=== PATIENT | male | born 1985 | race Caucasian/White ===

== ENCOUNTER 2017-12-02 13:01 | Inpatient (IN) | payer OTHER ==
[2017-12-02 13:12] VITALS: BMI 24.7
--- NOTE | 2017-12-02 18:10 | HP ---
COWS - Scale Resting Pulse: 1= SC 81-100 Sweatin=Flushed/Facial Moisture Restless Observation: 1= Difficult to Sit Still Pupil Size: 1= Pupils >than Normal Bone or Joint Aches: 1= Mild Discomfort Runny Nose/ Eye Tearin= Nasal Congestion GI Upset > 30mins: 2= Nausea/Diarrhea Tremor Observation: 2= Slight Tremor Visible Yawning Observation: 1= 1-2x During Session Anxiety or Irritability: 2=Irritable/Anxious Goose Flesh Skin: 0=Smooth Skin COWS Score: 14 Admission ROS BHS - HPI Chief Complaint: "I just want to stop , I am tired" Allergies/Adverse Reactions: Allergies Allergy/AdvReac Type Severity Reaction Status Date / Time penicillin G Allergy Severe Hives Verified 12/02/17 16:19 History of Present Illness: 32 y/o male with a 15 year history of heroin addiction presents here today requesting detox from Heroin. Pt was here last in 2013 and has been in other detox/rehab places. last used this a.m Hx of nicotine depence. Denies medical hx. Hx of anxiety for which he takes xanax, states he only goes to the psychiatrist to get meds to get high. Endorses a 6 month sober period from Apr 2017 - sep 2017 as a result of being in skilled nursing. Has not been been sober since then. Denies SI, HI at current time. Exam Limitations: No Limitations - Ebola screening Have you traveled outside of the country in the last 21 days: No (N) Have you had contact with anyone from an Ebola affected area: No Have you been sick,other than usual withdrawal symptoms: No Do you have a fever: No - Review of Systems Constitutional: No Symptoms Reported EENT: reports: Nose Congestion Respiratory: reports: No Symptoms reported Cardiac: reports: No Symptoms Reported GI: reports: Diarrhea, Nausea, Abdominal cramping Musculoskeletal: reports: Back Pain (lower back pain), Joint Pain Integumentary: reports: No Symptoms Reported, Other (track carrasco to L antecubital and R lower arm areas) Neuro: reports: Headache (slight headache, slight tremors to both arms), Tremors Endocrine: reports: Flushing Hematology: reports: No Symptoms Reported Psychiatric: reports: Judgement Intact, Mood/Affect Appropiate, Orientated x3, Anxious Other Systems: Reviewed and Negative Patient History - Patient Medical History Hx Anemia: No Hx Asthma: No Hx Chronic Obstructive Pulmonary Disease (COPD): No Hx Cancer: No Hx Cardiac Disorders: No Hx Congestive Heart Failure: No Hx Hypertension: No Hx Hypercholesterolemia: No Hx Pacemaker: No HX Cerebrovascular Accident: No Hx Seizures: No Hx Diabetes: No Hx Gastrointestinal Disorders: No Hx Liver Disease: No Hx Genitourinary Disorders: No Hx Sexually Transmitted Disorders: No Hx Renal Disease (ESRD): No Hx Thyroid Disease: No Hx Human Immunodeficiency Virus (HIV): No Hx Hepatitis C: No Hx Depression: No Hx Suicide Attempt: No (denies current ideas) Hx Bipolar Disorder: No Hx Schizophrenia: No - Patient Surgical History Past Surgical History: No Hx Neurologic Surgery: No Hx Cataract Extraction: No Hx Cardiac Surgery: No Hx Lung Surgery: No Hx Breast Surgery: No Hx Breast Biopsy: No Hx Abdominal Surgery: No Hx Appendectomy: No Hx Cholecystectomy: No Hx Genitourinary Surgery: No Hx Section: No Hx Orthopedic Surgery: No Anesthesia Reaction: No - PPD History Previous Implant?: Yes Documented Results: Negative w/o proof Implanted On Prior R Admission?: Yes Date: 02/03/14 PPD to be Administered?: Yes - Reproductive History Patient is a Female of Child Bearing Age (11 -55 yrs old): No Last Menstrual Period: 08/20/14 - Smoking Cessation Smoking history: Current every day smoker Have you smoked in the past 12 months: Yes Aproximately how many cigarettes per day: 10 Hx Chewing Tobacco Use: No Initiated information on smoking cessation: Yes 'Breaking Loose' booklet given: 12/02/17 - Substance & Tx. History Hx Alcohol Use: Yes (ocassionally ) Hx Substance Use: Yes Substance Use Type: Heroin, Marijuana Hx Substance Use Treatment: Yes - Substances Abused Heroin Route: Injection Frequency: Daily Amount used: 10-15 bags Age of first use: 16 Date of Last Use: 12/02/17 Family Disease History - Family Disease History Family Disease History: [place]: Grandparent (Grandma - liver [place]) Admission Physical Exam BHS - Vital Signs Vital Signs: Vital Signs - 24 hr 12/02/17 13:05 Temperature 97.2 F L Pulse Rate 81 Respiratory 16 Rate Blood Pressure 97/61 - Physical General Appearance: Yes: Mild Distress, Anxious HEENTM: Yes: Nasal Congestion Respiratory: Yes: Chest Non-Tender, Lungs Clear Neck: Yes: No masses,lesions,Nodules, Supple, Trachea in good position Breast: Yes: Breast Exam Deferred Cardiology: Yes: Regular Rhythm, Regular Rate Abdominal: Yes: Normal Bowel Sounds, Non Tender, Soft Back: Yes: Within Normal Limits, Normal Inspection Musculoskeletal: Yes: full range of Motion, Gait Steady Extremities: Yes: Normal Capillary Refill, Coldness Neurological: Yes: Within Normal Limits, Fully Oriented, Alert, Motor Strength 5 /5 Integumentary: Yes: Normal Color, Clammy, Track Carrasco (L Antecubital, R lower arm - not infected) - Diagnostic (1) Opioid dependence, uncomplicated Current Visit: Yes Status: Acute (2) Nicotine dependence Current Visit: No Status: Chronic (3) Cannabis dependence Current Visit: Yes Status: Acute (4) Cocaine dependence Current Visit: Yes Status: Acute Cleared for Admission [facility] - Detox or Rehab [facility] Level of Care: Medically Managed Detox Regimen/Protocol: Methadone [facility] Breath Alcohol Content Breath Alcohol Content: 0 Urine Drug Screen - Results Drug Screen Negative: No Urine Drug Screen Results: THC-Marijuana, CORNELIUS-Cocaine, OPI-Opiates
[2017-12-02] MEDS ORDERED: MAG HYDROX/AL HYDROX/SIMETH 30 ML UNIT-DOSE CUP PO PRN (18:30)
[2017-12-02] MEDS ORDERED: ACETAMINOPHEN 325 MG TABLET (FP) PO PRN (18:30)
[2017-12-02] MEDS ORDERED: MENTHOL/PHENOL 1 EACH UD MM PRN (18:30)
[2017-12-02] MEDS ORDERED: P-EPHED 60MG/TRIPROLIDI 2.5MG TABLET PO PRN (18:30)
[2017-12-02] MEDS ORDERED: guaiFENesin/D-METHORPHAN HB 10 ML UNIT-DOSE CUPS PO PRN (18:30)
[2017-12-02] MEDS ORDERED: MAGNESIUM HYDROX 2400MG/30ML ORAL SUSPENSION 30 ML CUP PO PRN (18:30)
[2017-12-02] MEDS ORDERED: LOPERAMIDE HCL 2 MG CAPSULE PO PRN (18:30)
[2017-12-02] MEDS ORDERED: MAGNESIUM CITRATE 300 ML BOTTLE PO PRN (18:30)
[2017-12-02] MEDS ORDERED: METHADONE HCL 10 MG TABLET (FOR DETOX USE ONLY) PO ONE ×2 (18:30→23:00)
[2017-12-02] MEDS ORDERED: IBUPROFEN 400 MG TABLET (FP) PO PRN (18:30)
[2017-12-02] MEDS ORDERED: NICOTINE POLACRILEX 2 MG GUM BUC PRN (18:35)
[2017-12-02] MEDS: diazePAM 5 MG TABLET PO PRN (19:09)
[2017-12-02] MEDS: NICOTINE 14 MG/24 HOURS TOPICAL PATCH TD SCH (19:19)
[2017-12-02] MEDS: THIAMINE HCL 100 MG TABLET (FP) PO SCH (22:21)
[2017-12-02] MEDS: MELATONIN 5 MG TABLETS PO SCH (22:21)
[2017-12-03] MEDS: diazePAM 5 MG TABLET PO PRN ×4 (02:02→19:21)
--- NOTE | 2017-12-03 07:32 | CONSULT ---
[facility] Psychiatric Consult - Data Date of interview: 12/03/17 Admission source: Self-referred Identifying data: MR Ortiz is a 32 years old single male, unemployed with no source of income, homeless living with friends seeking detox treatment for opoid Substance Abuse History: Reports history of heroin use. He started using heroin at age 16, consumes 10-15 bags daily. Last used on 12/02/17 Medical History: Unremakable. Smokes 10 cigarettes daily Psychiatric History: On a previous detox admission in January 2014, he reported history of depression as a kid and 2 previous psychiatric hospitalizations at [facility] in [place], [place]. He also said that he stopped taking medication years ago and used to take Paxil, depakote and Klonopin. Now told principal technical writer that he was admitted only once to [facility] and was never on Depakote. Since that admission in 2013, he said that he attended [facility] where he saw a psychiatric for couple of years and he was prescribed Paxil and Xanax 2 mg o TID for anxiety. Claims that he last took them in Apr 2017. Pharmacy claim shows he only filled script from [facility] for Alprazolam 2 mg #90 on 03/01/17 & 04/07/17 at [facility] [employer]. When confronted with that information, he admitted that he did not fill script for Paxil since he was not taking it Physical/Sexual Abuse/Trauma History: Denies history of emotional, physical or sexual abuse as well as DV relationshiph. No service Additional Comment: Reports history of multiple previous arrests including one felony conviction. Denies being on parole/probation at present Mental Status Exam - Mental Status Exam Alert and Oriented to: Time, Person Cognitive Function: Fair Patient Appearance: Disheveled Mood: Anxious Affect: Appropriate Patient Behavior: Cooperative Speech Pattern: Clear Voice Loudness: Normal Thought Process: Intact, Goal Oriented Hallucinations: Denies Suicidal Ideation: Denies Homicidal Ideation: Denies Insight/Judgement: Poor Sleep: Poorly Appetite: Poor Muscle strength/Tone: Normal Gait/Station: Normal Psychiatric Findings - Problem List ([place] 1, 2,3) (1) Substance-induced anxiety disorder Current Visit: Yes Status: Acute (2) Substance-induced sleep disorder Current Visit: Yes Status: Acute (3) Opioid dependence, uncomplicated Current Visit: Yes Status: Acute (4) Nicotine dependence Current Visit: No Status: Chronic - Initial Treatment Plan Initial Treatment Plan: 1) Start Ambien 10 mg po HS prn for insomnia and Vistaril 50 mg po Q 4hrs prn for anxiety. 2) Continue inpatient detoxification
[2017-12-03] MEDS ORDERED: METHADONE HCL 10 MG TABLET (FOR DETOX USE ONLY) PO ONE (10:00)
[2017-12-03] MEDS: PRENATAL VITAMINS W/ FOLIC ACID TABLET (FP) PO SCH (10:13)
[2017-12-03] MEDS: NICOTINE 14 MG/24 HOURS TOPICAL PATCH TD SCH (10:13)
[2017-12-03] MEDS ORDERED: hydrOXYzine PAMOATE 50 MG CAPSULE (FP) PO PRN (10:24)
[2017-12-03 11:17] LABS: URINE APPEARANCE TURBID; URINE BILIRUBIN NEGATIVE (<2.0 mg/dL); URINE BLOOD NEGATIVE (NEGATIVE); URINE COLOR YELLOW; URINE GLUCOSE (UA) NEGATIVE (NEGATIVE); URINE KETONE NEGATIVE (NEGATIVE); URINE LEUK ESTERASE NEGATIVE (NEGATIVE); URINE NITRITE NEGATIVE (NEGATIVE)
[2017-12-03 11:19] LABS: URINE PROTEIN 1+ (NEGATIVE)
[2017-12-03 11:24] LABS: URINE BACTERIA MANY /hpf (NONE SEEN)
[2017-12-03] MEDS ORDERED: ONDANSETRON *ODT* 4 MG TABLET SL PRN (12:51)
--- NOTE | 2017-12-03 12:56 | PN ---
BHS COWS - Scale Resting Pulse: 0= [place] 80 or Below Sweatin= Chills/Flushing Restless Observation: 3= Extraneous Movement Pupil Size: 0= Normal to Room Light Bone or Joint Aches: 2= Severe Diffuse Aches Runny Nose/ Eye Tearin= Runny Nose/Eyes GI Upset > 30mins: 3= Vomiting/Diarrhea Tremor Observation of Outstretched Hands: 2= Slight Tremor Visible Yawning Observation: 0= None Anxiety or Irritability: 2=Irritable/Anxious Goose Flesh Skin: 0=Smooth Skin COWS Score: 15 BHS Progress Note (SOAP) Subjective: N/V (vomited x 2 this morning, refused tigan IM, wants zofran SL prn), diarrhea x 1, body ache, stomach ache, interrupted sleep Objective: 12/03/17 12:54 Last Vital Signs Temp Pulse Resp BP Pulse Ox 96.5 F L 69 18 113/75 12/03/17 09:20 12/03/17 09:20 12/03/17 09:20 12/03/17 09:20 Laboratory Tests 12/03/17 07:45 Urine Color Yellow Urine Appearance Turbid Urine pH 5.0 D Ur Specific [place] 1.030 Urine Protein 1+ H Urine Glucose (UA) Negative Urine Ketones Negative Urine Blood Negative Urine Nitrite Negative Urine Bilirubin Negative Urine Urobilinogen 2.0 Ur Leukocyte Esterase Negative Urine WBC (Auto) None Urine RBC (Auto) None Urine Bacteria Many UA shows proteinuria Assessment: 12/03/17 12:56 Withdrawal symptoms Noted with proteinuria Plan: Continue detox Will reorder admission labs Proteinuria: encouraged to drink lots of water for hydration
[2017-12-03 17:10] LABS: URINE APPEARANCE CLEAR; URINE BILIRUBIN NEGATIVE (<2.0 mg/dL); URINE BLOOD NEGATIVE (NEGATIVE); URINE COLOR YELLOW; URINE GLUCOSE (UA) NEGATIVE (NEGATIVE); URINE KETONE NEGATIVE (NEGATIVE); URINE LEUK ESTERASE NEGATIVE (NEGATIVE); URINE NITRITE NEGATIVE (NEGATIVE); URINE PROTEIN NEGATIVE (NEGATIVE); URINE UROBILINOGEN NEGATIVE mg/dL (0.2-1.0)
[2017-12-03] MEDS: THIAMINE HCL 100 MG TABLET (FP) PO SCH (22:23)
[2017-12-03] MEDS: MELATONIN 5 MG TABLETS PO SCH (22:23)
[2017-12-03] MEDS: ZOLPIDEM TARTRATE 5 MG TABLET PO PRN (22:23)
[2017-12-04] MEDS: diazePAM 5 MG TABLET PO PRN ×5 (00:01→21:30)
--- NOTE | 2017-12-04 09:09 | EKG ---
Test Reason : Blood Pressure : / mmHG Vent. Rate : 073 BPM Atrial Rate : 073 BPM P-R Int : 132 ms QRS Dur : 098 ms QT Int : 370 ms P-R-T Axes : 037 064 052 degrees QTc Int : 407 ms NORMAL SINUS RHYTHM INCOMPLETE RBBB EARLY REPOLARIZATION NORMAL ECG NO PREVIOUS ECGS AVAILABLE Confirmed by NENITA MEADOWS MD ([id number]) on 12/04/2017 9:09:15 AM Referred By: Confirmed By:NENITA MEADOWS MD
[2017-12-04] MEDS ORDERED: METHADONE HCL 5 MG TABLET (FOR DETOX USE ONLY) PO ONE (10:00)
[2017-12-04] MEDS: PRENATAL VITAMINS W/ FOLIC ACID TABLET (FP) PO SCH (10:13)
[2017-12-04] MEDS: NICOTINE 14 MG/24 HOURS TOPICAL PATCH TD SCH (10:14)
[2017-12-04 10:16] LABS: BASO % 0.6 % (0-2.0); EOS % 5.8 % (0-4.5); HEMATOCRIT 45.1 % (35.4-49); LYMPH % 43.4 % (8-40); MCH 28.2 pg (25.7-33.7); MCHC 33.3 g/dl (32.0-35.9); MEAN CELL VOLUME 84.8 fl (80-96); MEAN PLT VOLUME 10.8 fl (7.5-11.1); NEUT % 40.2 % (42.8-82.8); PLATELET COUNT 153 K/MM3 (134-434); RBC 5.32 M/mm3 (4.00-5.60); WHITE BLOOD COUNT 5.7 K/mm3 (4.0-10.0)
[2017-12-04 10:37] LABS: CHLORIDE 104 mmol/L (98-107); POTASSIUM 4.4 mmol/L (3.5-5.1); SODIUM 141 mmol/L (136-145)
[2017-12-04 10:44] LABS: ALBUMIN 4.1 g/dl (3.4-5.0); ALK PHOS 86 U/L (45-117); ANION GAP 10 (8-16); BILIRUBIN,TOTAL 0.7 mg/dL (0.2-1.0); BLOOD UREA NITROGEN 11 mg/dL (7-18); CALCIUM 8.9 mg/dL (8.5-10.1); CO2 27 mmol/L (21-32); CREATININE 0.8 mg/dL (0.7-1.3); GLUCOSE,RANDOM 82 mg/dL (74-106); SGOT/AST 21 U/L (15-37); SGPT/ALT 33 U/L (12-78); TOT PROT 7.1 g/dl (6.4-8.2)
--- NOTE | 2017-12-04 12:06 | PN ---
BHS COWS - Scale Resting Pulse: 0= [place] 80 or Below Sweatin= Chills/Flushing Restless Observation: 1= Difficult to Sit Still Pupil Size: 0= Normal to Room Light Bone or Joint Aches: 2= Severe Diffuse Aches Runny Nose/ Eye Tearin= None GI Upset > 30mins: 2= Nausea/Diarrhea Tremor Observation of Outstretched Hands: 2= Slight Tremor Visible Yawning Observation: 1= 1-2x During Session Anxiety or Irritability: 2=Irritable/Anxious Goose Flesh Skin: 3=Piloerection COWS Score: 14 BHS Progress Note (SOAP) Subjective: Nausea, Diarrhea, Body Aches, Fatigue, Sweating. Objective: PATIENT A & O X 3, OBSERVED AMBULATING ON UNIT. NO ACUTE DISTRESS. 12/04/17 12:05 Vital Signs Temperature 97.4 F L 12/04/17 09:24 Pulse Rate 64 12/04/17 09:24 Respiratory Rate 18 12/04/17 09:24 Blood Pressure 93/52 12/04/17 09:24 O2 Sat by Pulse Oximetry (%) Laboratory Tests 12/03/17 12/03/17 12/04/17 07:45 13:44 07:00 WBC 5.7 RBC 5.32 Hgb 15.0 Hct 45.1 MCV 84.8 MCH 28.2 MCHC 33.3 RDW 13.0 Plt Count 153 MPV 10.8 D Neutrophils % 40.2 L Lymphocytes % 43.4 H Monocytes % 10.0 Eosinophils % 5.8 H Basophils % 0.6 Sodium Potassium Chloride Carbon Dioxide Anion Gap BUN Creatinine Creat Clearance w eGFR Random Glucose Calcium Total Bilirubin AST ALT Alkaline Phosphatase Total Protein Albumin Urine Color Yellow Yellow Urine Appearance Turbid Clear Urine pH 5.0 D 7.0 D Ur Specific [place] 1.030 1.016 Urine Protein 1+ H Negative Urine Glucose (UA) Negative Negative Urine Ketones Negative Negative Urine Blood Negative Negative Urine Nitrite Negative Negative Urine Bilirubin Negative Negative Urine Urobilinogen 2.0 Negative Ur Leukocyte Esterase Negative Negative Urine WBC (Auto) None Urine RBC (Auto) None Urine Bacteria Many RPR Titer 12/04/17 12/04/17 07:00 07:00 WBC RBC Hgb Hct MCV MCH MCHC RDW Plt Count MPV Neutrophils % Lymphocytes % Monocytes % Eosinophils % Basophils % Sodium 141 Potassium 4.4 Chloride 104 Carbon Dioxide 27 Anion Gap 10 BUN 11 D Creatinine 0.8 D Creat Clearance w eGFR > 60 Random Glucose 82 Calcium 8.9 Total Bilirubin 0.7 D AST 21 ALT 33 D Alkaline Phosphatase 86 Total Protein 7.1 Albumin 4.1 Urine Color Urine Appearance Urine pH Ur Specific [place] Urine Protein Urine Glucose (UA) Urine Ketones Urine Blood Urine Nitrite Urine Bilirubin Urine Urobilinogen Ur Leukocyte Esterase Urine WBC (Auto) Urine RBC (Auto) Urine Bacteria RPR Titer Nonreactive LABS NOTED. RESULTS OF REPEAT UA NOTED. 12/04/17 12:05 Assessment: 12/04/17 12:05 WITHDRAWAL SYMPTOMS. Plan: CONTINUE DETOX. PRN ZOFRAN SL FOR NAUSEA. PRN IMMODIUM FOR DIARRHEA. INCREASE DAILY PO FLUID INTAKE.
[2017-12-04] MEDS: THIAMINE HCL 100 MG TABLET (FP) PO SCH (21:30)
[2017-12-04] MEDS: MELATONIN 5 MG TABLETS PO SCH (21:30)
[2017-12-04] MEDS: ZOLPIDEM TARTRATE 5 MG TABLET PO PRN (21:32)
[2017-12-05] MEDS: diazePAM 5 MG TABLET PO PRN ×3 (07:44→16:41)
[2017-12-05] MEDS ORDERED: METHADONE HCL 5 MG TABLET (FOR DETOX USE ONLY) PO ONE (10:00)
[2017-12-05] MEDS: PRENATAL VITAMINS W/ FOLIC ACID TABLET (FP) PO SCH (10:09)
[2017-12-05] MEDS: NICOTINE 14 MG/24 HOURS TOPICAL PATCH TD SCH (10:09)
--- NOTE | 2017-12-05 10:41 | PN ---
BHS Progress Note (SOAP) Subjective: Sweating, Body Aches, Tremors, Stomach Cramping. Objective: PATIENT A & O X 3, OBSERVED AMBULATING ON UNIT. NO ACUTE DISTRESS. 12/05/17 10:39 Vital Signs Temperature 97.4 F L 12/05/17 09:21 Pulse Rate 62 12/05/17 09:21 Respiratory Rate 18 12/05/17 09:21 Blood Pressure 96/64 12/05/17 09:21 O2 Sat by Pulse Oximetry (%) Laboratory Tests 12/03/17 12/03/17 12/04/17 07:45 13:44 07:00 WBC 5.7 RBC 5.32 Hgb 15.0 Hct 45.1 MCV 84.8 MCH 28.2 MCHC 33.3 RDW 13.0 Plt Count 153 MPV 10.8 D Neutrophils % 40.2 L Lymphocytes % 43.4 H Monocytes % 10.0 Eosinophils % 5.8 H Basophils % 0.6 Sodium Potassium Chloride Carbon Dioxide Anion Gap BUN Creatinine Creat Clearance w eGFR Random Glucose Calcium Total Bilirubin AST ALT Alkaline Phosphatase Total Protein Albumin Urine Color Yellow Yellow Urine Appearance Turbid Clear Urine pH 5.0 D 7.0 D Ur Specific [place] 1.030 1.016 Urine Protein 1+ H Negative Urine Glucose (UA) Negative Negative Urine Ketones Negative Negative Urine Blood Negative Negative Urine Nitrite Negative Negative Urine Bilirubin Negative Negative Urine Urobilinogen 2.0 Negative Ur Leukocyte Esterase Negative Negative Urine WBC (Auto) None Urine RBC (Auto) None Urine Bacteria Many RPR Titer 12/04/17 12/04/17 07:00 07:00 WBC RBC Hgb Hct MCV MCH MCHC RDW Plt Count MPV Neutrophils % Lymphocytes % Monocytes % Eosinophils % Basophils % Sodium 141 Potassium 4.4 Chloride 104 Carbon Dioxide 27 Anion Gap 10 BUN 11 D Creatinine 0.8 D Creat Clearance w eGFR > 60 Random Glucose 82 Calcium 8.9 Total Bilirubin 0.7 D AST 21 ALT 33 D Alkaline Phosphatase 86 Total Protein 7.1 Albumin 4.1 Urine Color Urine Appearance Urine pH Ur Specific [place] Urine Protein Urine Glucose (UA) Urine Ketones Urine Blood Urine Nitrite Urine Bilirubin Urine Urobilinogen Ur Leukocyte Esterase Urine WBC (Auto) Urine RBC (Auto) Urine Bacteria RPR Titer Nonreactive LABS NOTED. Assessment: 12/05/17 10:40 WITHDRAWAL SYMPTOMS. Plan: CONTINUE DETOX. INCREASE DAILY PO FLUID INTAKE.
[2017-12-05] MEDS: THIAMINE HCL 100 MG TABLET (FP) PO SCH (22:20)
[2017-12-05] MEDS: MELATONIN 5 MG TABLETS PO SCH (22:20)
[2017-12-05] MEDS: ZOLPIDEM TARTRATE 5 MG TABLET PO PRN (22:23)
[2017-12-06] MEDS ORDERED: METHADONE HCL 10 MG TABLET (FOR DETOX USE ONLY) PO ONE (10:00)
[2017-12-06] MEDS: PRENATAL VITAMINS W/ FOLIC ACID TABLET (FP) PO SCH (10:16)
[2017-12-06] MEDS: CYCLOBENZAPRINE HCL 10 MG TABLET (FP) PO PRN ×2 (10:16→22:21)
[2017-12-06] MEDS: NICOTINE 14 MG/24 HOURS TOPICAL PATCH TD SCH (10:16)
--- NOTE | 2017-12-06 11:57 | PN ---
BHS Progress Note (SOAP) Subjective: Fatigue, Tremors, H/A, Diarrhea, Stomach Cramping. Objective: PATIENT A & O X 3, OBSERVED AMBULATING ON UNIT. NO ACUTE DISTRESS. 12/06/17 11:55 Vital Signs Temperature 96.4 F L 12/06/17 09:20 Pulse Rate 69 12/06/17 09:20 Respiratory Rate 18 12/06/17 09:20 Blood Pressure 111/75 12/06/17 09:20 O2 Sat by Pulse Oximetry (%) Laboratory Tests 12/03/17 12/03/17 12/04/17 07:45 13:44 07:00 WBC 5.7 RBC 5.32 Hgb 15.0 Hct 45.1 MCV 84.8 MCH 28.2 MCHC 33.3 RDW 13.0 Plt Count 153 MPV 10.8 D Neutrophils % 40.2 L Lymphocytes % 43.4 H Monocytes % 10.0 Eosinophils % 5.8 H Basophils % 0.6 Sodium Potassium Chloride Carbon Dioxide Anion Gap BUN Creatinine Creat Clearance w eGFR Random Glucose Calcium Total Bilirubin AST ALT Alkaline Phosphatase Total Protein Albumin Urine Color Yellow Yellow Urine Appearance Turbid Clear Urine pH 5.0 D 7.0 D Ur Specific [place] 1.030 1.016 Urine Protein 1+ H Negative Urine Glucose (UA) Negative Negative Urine Ketones Negative Negative Urine Blood Negative Negative Urine Nitrite Negative Negative Urine Bilirubin Negative Negative Urine Urobilinogen 2.0 Negative Ur Leukocyte Esterase Negative Negative Urine WBC (Auto) None Urine RBC (Auto) None Urine Bacteria Many RPR Titer 12/04/17 12/04/17 07:00 07:00 WBC RBC Hgb Hct MCV MCH MCHC RDW Plt Count MPV Neutrophils % Lymphocytes % Monocytes % Eosinophils % Basophils % Sodium 141 Potassium 4.4 Chloride 104 Carbon Dioxide 27 Anion Gap 10 BUN 11 D Creatinine 0.8 D Creat Clearance w eGFR > 60 Random Glucose 82 Calcium 8.9 Total Bilirubin 0.7 D AST 21 ALT 33 D Alkaline Phosphatase 86 Total Protein 7.1 Albumin 4.1 Urine Color Urine Appearance Urine pH Ur Specific [place] Urine Protein Urine Glucose (UA) Urine Ketones Urine Blood Urine Nitrite Urine Bilirubin Urine Urobilinogen Ur Leukocyte Esterase Urine WBC (Auto) Urine RBC (Auto) Urine Bacteria RPR Titer Nonreactive labs noted. Assessment: 12/06/17 11:56 WITHDRAWAL SYMPTOMS. Plan: CONTINUE DETOX.
[2017-12-06] MEDS: THIAMINE HCL 100 MG TABLET (FP) PO SCH (22:21)
[2017-12-06] MEDS: ZOLPIDEM TARTRATE 5 MG TABLET PO PRN (22:21)
[2017-12-06] MEDS: MELATONIN 5 MG TABLETS PO SCH (22:21)
[2017-12-07] MEDS ORDERED: METHADONE HCL 5 MG TABLET (FOR DETOX USE ONLY) PO ONE (06:00)
[2017-12-07 06:17] VITALS: TEMP 97
[2017-12-07 06:50] VITALS: BP 100/63; PULSE 78
--- NOTE | 2017-12-07 17:08 | PN ---
S Progress Note (SOAP) Subjective: Patient denies any current Detox symptoms and reports that he feels well overall. Objective: PATIENT A & O X 3, OBSERVED AMBULATING ON UNIT. NO ACUTE DISTRESS. 12/07/17 17:07 Vital Signs Temperature 97.0 F L 12/07/17 06:49 Pulse Rate 78 12/07/17 06:49 Respiratory Rate 19 12/07/17 06:49 Blood Pressure 100/63 12/07/17 06:49 O2 Sat by Pulse Oximetry (%) Laboratory Tests 12/03/17 12/03/17 12/04/17 07:45 13:44 07:00 WBC 5.7 RBC 5.32 Hgb 15.0 Hct 45.1 MCV 84.8 MCH 28.2 MCHC 33.3 RDW 13.0 Plt Count 153 MPV 10.8 D Neutrophils % 40.2 L Lymphocytes % 43.4 H Monocytes % 10.0 Eosinophils % 5.8 H Basophils % 0.6 Sodium Potassium Chloride Carbon Dioxide Anion Gap BUN Creatinine Creat Clearance w eGFR Random Glucose Calcium Total Bilirubin AST ALT Alkaline Phosphatase Total Protein Albumin Urine Color Yellow Yellow Urine Appearance Turbid Clear Urine pH 5.0 D 7.0 D Ur Specific [place] 1.030 1.016 Urine Protein 1+ H Negative Urine Glucose (UA) Negative Negative Urine Ketones Negative Negative Urine Blood Negative Negative Urine Nitrite Negative Negative Urine Bilirubin Negative Negative Urine Urobilinogen 2.0 Negative Ur Leukocyte Esterase Negative Negative Urine WBC (Auto) None Urine RBC (Auto) None Urine Bacteria Many RPR Titer 12/04/17 12/04/17 07:00 07:00 WBC RBC Hgb Hct MCV MCH MCHC RDW Plt Count MPV Neutrophils % Lymphocytes % Monocytes % Eosinophils % Basophils % Sodium 141 Potassium 4.4 Chloride 104 Carbon Dioxide 27 Anion Gap 10 BUN 11 D Creatinine 0.8 D Creat Clearance w eGFR > 60 Random Glucose 82 Calcium 8.9 Total Bilirubin 0.7 D AST 21 ALT 33 D Alkaline Phosphatase 86 Total Protein 7.1 Albumin 4.1 Urine Color Urine Appearance Urine pH Ur Specific [place] Urine Protein Urine Glucose (UA) Urine Ketones Urine Blood Urine Nitrite Urine Bilirubin Urine Urobilinogen Ur Leukocyte Esterase Urine WBC (Auto) Urine RBC (Auto) Urine Bacteria RPR Titer Nonreactive LABS NOTED. Assessment: 12/07/17 17:08 COMPLETION OF DETOX REGIMEN. 12/07/17 17:08 Plan: PATIENT SCHEDULED FOR DISCHARGE FROM DETOX TODAY.
--- NOTE | 2017-12-07 17:11 | DS ---
[facility] Detox Discharge Summary Admission Date: 12/02/17 Discharge Date: 12/07/17 - History Present History: Cannabis Dependence, Cocaine Dependence, Opioid Dependence Additional Comments: PATIENT GOING HOME. PATIENT ADVISED TO CONSIDER LOCAL 12-STEP / NA OUTPATIENT SUPPORT GROUPS FOR AFTERCARE. PATIENT WAS DISCHARGED FROM DETOX UNIT IN STABLE MEDICAL CONDITION. Pertinent Past History: Insomnia, Nicotine Dependence. - Physical Exam Results Vital Signs: Vital Signs Temperature 97.0 F L 12/07/17 06:49 Pulse Rate 78 12/07/17 06:49 Respiratory Rate 19 12/07/17 06:49 Blood Pressure 100/63 12/07/17 06:49 O2 Sat by Pulse Oximetry (%) Pertinent Admission Physical Exam Findings: WITHDRAWAL SYMPTOMS. Laboratory Tests 12/03/17 12/03/17 12/04/17 07:45 13:44 07:00 WBC 5.7 RBC 5.32 Hgb 15.0 Hct 45.1 MCV 84.8 MCH 28.2 MCHC 33.3 RDW 13.0 Plt Count 153 MPV 10.8 D Neutrophils % 40.2 L Lymphocytes % 43.4 H Monocytes % 10.0 Eosinophils % 5.8 H Basophils % 0.6 Sodium Potassium Chloride Carbon Dioxide Anion Gap BUN Creatinine Creat Clearance w eGFR Random Glucose Calcium Total Bilirubin AST ALT Alkaline Phosphatase Total Protein Albumin Urine Color Yellow Yellow Urine Appearance Turbid Clear Urine pH 5.0 D 7.0 D Ur Specific [place] 1.030 1.016 Urine Protein 1+ H Negative Urine Glucose (UA) Negative Negative Urine Ketones Negative Negative Urine Blood Negative Negative Urine Nitrite Negative Negative Urine Bilirubin Negative Negative Urine Urobilinogen 2.0 Negative Ur Leukocyte Esterase Negative Negative Urine WBC (Auto) None Urine RBC (Auto) None Urine Bacteria Many RPR Titer 12/04/17 12/04/17 07:00 07:00 WBC RBC Hgb Hct MCV MCH MCHC RDW Plt Count MPV Neutrophils % Lymphocytes % Monocytes % Eosinophils % Basophils % Sodium 141 Potassium 4.4 Chloride 104 Carbon Dioxide 27 Anion Gap 10 BUN 11 D Creatinine 0.8 D Creat Clearance w eGFR > 60 Random Glucose 82 Calcium 8.9 Total Bilirubin 0.7 D AST 21 ALT 33 D Alkaline Phosphatase 86 Total Protein 7.1 Albumin 4.1 Urine Color Urine Appearance Urine pH Ur Specific [place] Urine Protein Urine Glucose (UA) Urine Ketones Urine Blood Urine Nitrite Urine Bilirubin Urine Urobilinogen Ur Leukocyte Esterase Urine WBC (Auto) Urine RBC (Auto) Urine Bacteria RPR Titer Nonreactive LABS NOTED. - Treatment Hospital Course: Detox Protocol Followed, Detoxed Safely, Responded well, Discharged Condition Good Patient has Accepted a Rehab Referral to: PT GOING HOME, ADVISED TO CONSIDER LOCAL 12-STEP/NA SUPPORT GROUPS. - Medication Discharge Medications: Ambulatory Orders NK [No Known Home Medication] 12/06/17 - Diagnosis (1) Insomnia Status: Acute Qualifiers: Insomnia type: unspecified Qualified Code(s): G47.00 - Insomnia, unspecified (2) Opioid dependence, uncomplicated Status: Acute (3) Proteinuria Status: Acute Qualifiers: Proteinuria type: unspecified Qualified Code(s): R80.9 - Proteinuria, unspecified (4) Cannabis dependence Status: Chronic (5) Cocaine dependence Status: Chronic Qualifiers: Substance use status: uncomplicated Qualified Code(s): F14.20 - Cocaine dependence, uncomplicated (6) Nicotine dependence Status: Chronic Qualifiers: Nicotine product type: cigarettes Substance use status: uncomplicated Qualified Code(s): F17.210 - Nicotine dependence, cigarettes, uncomplicated (7) Substance-induced anxiety disorder Status: Acute (8) Substance-induced sleep disorder Status: Acute - AMA Did Patient Leave Against Medical Advice: No
== END 2017-12-07 09:05 | disposition home or self-care (01) | DRG 773 ==
LOC: YASAS 13:01 → Y3N 16:36
PROVIDERS: ADMIT Internal Medicine; ATTEND Internal Medicine
PROC: HZ2ZZZZ Detoxification Services for Substance Abuse Treatment (ICD-10-PCS; principal; 2017-12-02)
DX: F11.20 Opioid dependence, uncomplicated (principal); F14.20 Cocaine dependence, uncomplicated; F12.20 Cannabis dependence, uncomplicated; F17.210 Nicotine dependence, cigarettes, uncomplicated; F19.280 Other psychoactive substance dependence with psychoactive substance-induced anxiety disorder; F19.282 Other psychoactive substance dependence with psychoactive substance-induced sleep disorder; G47.00 Insomnia, unspecified; R80.9 Proteinuria, unspecified; Z59.0 Homelessness
CPT/HCPCS: 36415; 80053; 81003; 81015; 85025; 86593; 93005; 93010